=== PATIENT | female | born 1975 | race Caucasian/White ===

== ENCOUNTER 2017-03-18 01:03 | Emergency (ER) | payer SELFPAY | END 2017-03-18 09:58 | disposition home or self-care (01) | PROVIDERS: Emergency Provider Emergency Medicine; Visit Provider Emergency Medicine | DX: T40.1X1A Poisoning by heroin, accidental (unintentional), initial encounter (principal); E87.6 Hypokalemia; R94.5 Abnormal results of liver function studies; F17.210 Nicotine dependence, cigarettes, uncomplicated; Z88.0 Allergy status to penicillin; Z88.6 Allergy status to analgesic agent | CPT/HCPCS: 36415; 80053; 80305; 80329; 81001; 85025; 87086; 96365; 96367; 96375; 99284; J2405 ==